=== PATIENT | female | born 1975 | race Caucasian/White ===

== ENCOUNTER 2019-03-12 06:34 | Day surgery (SDC) | payer BC ==
[~2019-03-12] VITALS: Ht 162.6 cm; Wt 74.6 kg
[2019-03-12] VITALS (11 sets, daily range): BP systolic 86–111; BP diastolic 52–67; PULSE 66–75; RESP 12–18; Ht 162.6 cm; Wt 74.6 kg
[2019-03-12] MEDS ORDERED: LIDOCAINE 2% (MDV) 20 ML INJ ONE (06:51)
[2019-03-12] MEDS ORDERED: DEXAMETHASONE 4 MG/ML 1 ML INJ ONE (06:51)
[2019-03-12] MEDS ORDERED: BUPIVACAINE 0.5% (SDV) 30 ML INJ ONE (06:51)
[2019-03-12] MEDS ORDERED: POLYMYXIN/BACITRACIN 1L IRRIG ONE (06:52)
[2019-03-12] MEDS ORDERED: NITR-58 PO (06:55)
[2019-03-12] MEDS ORDERED: LIDOCAINE 100 MG SYRINGE ONE (07:07)
[2019-03-12] MEDS ORDERED: MIDAZOLAM 1 MG/ML 2 ML INJ ONE (07:07)
[2019-03-12] MEDS ORDERED: FENTAnyl 50 MCG/ML VIAL ONE (07:07)
[2019-03-12] MEDS ORDERED: DEXAMETHASONE 4 MG/ML 5 ML INJ ONE (07:07)
[2019-03-12] MEDS ORDERED: PROPOFOL 100 ML ONE (07:07)
[2019-03-12] MEDS ORDERED: ONDANSETRON 4 MG INJ ONE (07:07)
[2019-03-12] MEDS ORDERED: SUGAMMADEX SODIUM 200 MG/2 ML VIAL IV ONE (07:08)
--- NOTE | 2019-03-12 07:12 | PREAC ---
Date/Time of Note Date/Time of Note DATE: 03/12/19 TIME: 07:12 Anesthesia Eval and Record Evaluation Time Pre-Procedure Interview DATE: 03/12/19 TIME: 07:12 Age 43 Sex female NPO: 8 hrs Preoperative diagnosis bunion deformity Planned procedure LEFT BUNIONECTOMY WITH DISTAL HEAD Past Medical History Past Medical History: Includes Heme: Anemia Surgery & Anesthesia Issues No known issue Meds Anticoagulation: No Beta Hermilo within 24 hr: No Reason Beta Hermilo not given: Pt. not on B-Hermilo Reported Medications Nitrofurantoin Monohyd Macrocr* (Macrobid*) 100 Mg Capsr, 100 MG PO BID, CAP 03/12/19 Meds reviewed: Yes Allergies Coded Allergies: No Known Allergy (Unverified , 03/12/19) Allergies Reviewed: Yes Labs/Studies Labs Reviewed: Reviewed by anesthesiologist test: Negative Studies: ECG (SR), CXR Pre-procedure Exam Last vitals Vital Signs Date Temp Pulse Resp B/P (MAP) Pulse Ox O2 O2 Flow FiO2 Time Delivery Rate 03/12/19 98.1 75 18 111/63 99 Room Air 07:01 (79) Airway: Adequate mouth opening Mallampati: Mallampati II Teeth: Normal Lung: Normal Heart: Normal ASA Physical Status ASA physical status: 2 Emergency: None Planned Anesthetic General/MAC: LMA Pre-operative Attestations Prior to commencing anesthesia and surgery, the patient was re-evaluated, there was verification of: *The patient's identity *The results of appropriate recent lab work and preoperative vital signs *The above evaluation not changing prior to induction *Anesthetic plan, risk benefits, alternative and complications discussed with patient/family; questions answered; patient/family understands, accepts and wishes to proceed. SIVAKUMAR COLLADO March 12, 2019 07:12
[2019-03-12] MEDS ORDERED: BUPIVACAINE 0.5% (MPF) 30 ML INJ INJ ONE (07:22)
[2019-03-12] MEDS ORDERED: LIDOCAINE 2% (MDV) 20 ML INJ INJ ONE (07:22)
[2019-03-12] MEDS ORDERED: DEXAMETHASONE 4 MG/ML 1 ML INJ INJ ONE (07:22)
[2019-03-12] MEDS ORDERED: METOCLOPRAMIDE 10 MG INJ IV PRN (07:30)
[2019-03-12] MEDS ORDERED: MEPERIDINE 25 MG INJ IV PRN (07:30)
[2019-03-12] MEDS ORDERED: FENTAnyl 50 MCG/ML VIAL IV PRN ×2 (07:30)
[2019-03-12] MEDS ORDERED: LABETALOL HCL 20MG INJ IV PRN (07:30)
[2019-03-12] MEDS ORDERED: ONDANSETRON 4 MG INJ IV PRN (07:30)
[2019-03-12] MEDS ORDERED: HYDROmorphONE 1 MG/5 ML IV SYRINGE IV PRN ×2 (07:30)
[2019-03-12] MEDS ORDERED: hydrALAzine 20 MG INJ IV PRN (07:30)
--- NOTE | 2019-03-12 07:39 | HPN ---
Date/Time of Note Date/Time of Note DATE: 03/12/19 TIME: 07:39 Interval H&P Admission Note Pt. seen H&P reviewed: No system changes NORM MEREDITH DPM March 12, 2019 07:39
[2019-03-12] MEDS ORDERED: KETOROLAC 30 MG INJ ONE (08:26)
--- NOTE | 2019-03-12 08:38 | SIPON ---
Date/Time of Note Date/Time of Note DATE: 03/12/19 TIME: 08:36 Operative Report Preoperative Diagnosis bunion deformity left foot. Postoperative Diagnosis bunion deformity left foot. Operation/Procedure Performed bunionectomy with osteotomy left first metatarsal Surgeon see signature line cosmetic sales assistant none Anesthesia: MAC Estimated blood loss: none Transfusion Required none Specimen none Grafts/Implants none Complications none NORM MEREDITH DPM March 12, 2019 08:38
--- NOTE | 2019-03-12 08:39 | PAC ---
Date/Time of Note Date/Time of Note DATE: 03/12/19 TIME: 08:39 Post-Anesthesia Notes Post-Anesthesia Note Last documented vital signs Vital Signs Date Temp Pulse Resp B/P (MAP) Pulse Ox O2 O2 Flow FiO2 Time Delivery Rate 03/12/19 98.1 75 18 111/63 99 Room Air 07:01 (79) Activity: WNL Respiratory function: WNL Cardiovascular function: WNL Mental status: Baseline Pain reasonably controlled: Yes Hydration appropriate: Yes Nausea/Vomiting absent: Yes SIVAKUMAR COLLADO March 12, 2019 08:39
[2019-03-12] MEDS ORDERED: HYDROCODONE/APAP (5/325) TAB PO PRN (09:00)
--- NOTE | 2019-03-17 05:45 | OPR ---
DATE OF OPERATION: 03/12/2019 SURGEON: Tamiko Wells DPM ANESTHESIOLOGIST: DARRYL Willett. ANESTHESIA: Local with IV sedation. PREOPERATIVE DIAGNOSIS: Painful bunion with hallux valgus, left foot. POSTOPERATIVE DIAGNOSIS: Painful bunion with hallux valgus, left foot. PROCEDURE PERFORMED: Bunionectomy with distal head osteotomy of the left 1st metatarsal. OPERATIVE PROCEDURE: The patient was brought into the operating room, placed on the table in a secure supine position. Cardiac morning IV sedation and an ankle pneumatic tourniquet were utilized for this case. Preoperatively, a total of 20 mL of 0.5 percent Marcaine plain mixed with 2 percent lidocaine plain were infiltrated into the left foot in the form of a Smith block. Upon achieving anesthesia, the left foot and leg were prepped and draped in the usual sterile manner and the ankle pneumatic tourniquet was inflated to 250 mmHg. Procedure number 1 was then performed, bunionectomy with distal head osteotomy left 1st metatarsal. A 4 cm dorsal medial incision was performed along the 1st metatarsophalangeal joint of the left foot. The incision was deepened. Superficial bleeders were then cauterized and bovied as necessary. The incision was deepened down to the capsule where a linear capsulotomy was performed. The capsule was reflected dorsally and plantarly exposing the hypertrophic medial eminence. The hypertrophic medial eminence was transected with a power sagittal saw. The 0.045 Christie wire was inserted from medial to lateral serving as an axis guide. The axis guide was 1.5 cm proximal to the metatarsophalangeal joint. A Chevron osteotomy was performed 60 degrees angles, 1 converging at the apex at the Christie wire. Once achieving the osteotomy site, the capsular fragment was then translocated laterally and fixated with a 17 mm x 3.0 mm cannulated Soham screw. Good compression and fixation was noted. The remaining bone was then transected with a power sagittal saw. The area was rasped smooth. No sharp edges were left behind. The surgical site was then irrigated with sterile saline mixed with bacitracin solution. The capsule was then closed with 2-0 Vicryl simple interrupted sutures. The subcutaneous tissue was closed with 4-0 Vicryl simple interrupted sutures and the skin edges were reapproximated with a running Prolene 3-0 subcuticular stitch. The dressing consisted of Xeroform gauze, 4 x 4 gauze, 4 inch Kerlix roll, and 2 inch Coban into a semi compressive dressing. The ankle pneumatic tourniquet was then deflated and immediate hyperemia was to all digits of the left foot were noted instantaneously. No intraoperative complications were encountered. The patient tolerated the above procedure well and left the OR with vital signs stable and satisfactory. The patient will follow up 1 week postop. Dictated By: Tamiko Wells DPM /venice/cayden /Document#: [id number]
== END 2019-03-12 10:07 | disposition home or self-care (01) ==
LOC: SDS 06:34
PROVIDERS: ATTEND Podiatrist Primary Podiatric Medicine
DX: M20.12 Hallux valgus (acquired), left foot (principal); M21.612 Bunion of left foot
CPT/HCPCS: 28296; 84703; C1713; J1100; J1885; J2001; J2250; J3010; J2405